=== PATIENT | male | born 1995 | race Caucasian/White ===

== ENCOUNTER 2023-02-08 19:34 | Inpatient (IN) | payer SELFPAY ==
[~2023-02-08 19:34] MED LIST: Iopamidol-370 76% 500 ML MDV (1 ML CHARGE) ONE
[2023-02-08 20:21] LABS: #Lymphocytes 1.6 thou/uL (1.20-3.40); #Monocytes 0.6 thou/uL (0.11-0.59); #Neutrophils 8.3 thou/uL (1.40-6.50); %Basophils 0.1 % (0.0-1.0); %Eosinophils 0.2 % (0.0-10.0); %Monocytes 5.2 % (0.0-10.0); %Neutrophils 79.5 % (42.0-75.0); Hemoglobin 12.7 g/dL (14.0-18.0); Mean Corpuscular HGB CONC 35.4 g/dL (32.0-36.0); Mean Corpuscular Hemoglobin 32.4 pg (27.0-31.0); Mean Corpuscular Volume 91.4 fl (78.0-98.0); Mean Platelet Volume 7.5 fL (7.4-10.4); Platelet Count 282 10x3/uL (130-400); RBC Distribution Width 11.3 % (11.5-14.5); Red Blood Cell (RBC) Count 3.93 mill/uL (4.70-6.10); White Blood Cell (WBC) Count 10.4 10x3/uL (4.8-10.8)
[2023-02-08] MEDS ORDERED: Ketorolac Tromethamine 30 MG/ML VIAL ONE (20:34)
[2023-02-08] MEDS ORDERED: Acetaminophen 500 MG TAB ONE (20:34)
[2023-02-08] MEDS ORDERED: Metoclopramide HCl 10 MG/2 ML VIAL ONE (20:34)
[2023-02-08] MEDS ORDERED: cefTRIAXone (ROCEPHIN) 2 GM VIAL ONE (20:34)
[2023-02-08 20:43] LABS: ALT (SGPT) 30 U/L (8-55); AST (SGOT) 11 U/L (5-34); Albumin 3.7 g/dL (3.5-5.0); Alkaline Phosphatase 58 U/L (40-110); Anion Gap 14 mmol/L (10-20); BUN (Urea Nitrogen) 6 mg/dL (8.9-20.6); Bilirubin, Total 0.3 mg/dL (0.2-1.2); Calc. Creatinine Clearance 0 mL/min (70-130); Calcium 8.9 mg/dL (7.8-10.44); Carbon Dioxide 24 mmol/L (22-29); Chloride 103 mmol/L (98-107); Estimated GFR 130; Globulin 2.6 g/dL (2.4-3.5); Glucose 102 mg/dL (70-105); Lipase 19 U/L (8-78); Magnesium 1.6 mg/dL (1.6-2.6); Potassium 3.4 mmol/L (3.5-5.1); Protein, Total 6.3 g/dL (6.0-8.3); Sodium 138 mmol/L (136-145)
[2023-02-08] MEDS ORDERED: Lidocaine 1% PF 5 ML VIAL ONE (21:09)
[2023-02-08 21:50] LABS: SARS-CoV-2 NAA Rapid Test Not Detected (NotDetected)
[2023-02-08 22:53] LABS: Color Of CSF Supernatant COLORLESS (Colorless); Tube # 2; Unspun CSF Color PINK (Colorless)
[2023-02-08] MEDS ORDERED: Vancomycin 1.5 GRAM/300 ML BAG 1.5 GM in Premix Bag 1 BAG IVPB SCH (23:00)
[2023-02-08 23:05] LABS: CSF, Glucose 58 mg/dl (40-70); CSF, Protein 45 mg/dL (15-40)
[2023-02-08 23:19] LABS: CSF Source CSF; Clarity Hazy (Clear); Tube # 1; Tube # 4
[2023-02-08 23:20] LABS: Clarity Hazy (Clear)
[2023-02-08 23:21] LABS: Cell Count Non Hematic 4 %; Lymphocytes 46 %; Segmented Neutrophils 50 %
[2023-02-08 23:23] LABS: Cell Count Non Hematic 6 %; Lymphocytes 41 %; Segmented Neutrophils 53 %
[2023-02-09] MEDS ORDERED: SODIUM CHLORIDE 0.9% IVPB SCH (00:30)
[2023-02-09] MEDS ORDERED: WATER IVPB SCH (00:30)
[2023-02-09] MEDS ORDERED: ACYCLOVIR SODIUM IVPB SCH ×2 (00:30)
[2023-02-09] MEDS ORDERED: DEXTROSE 5% IVPB SCH (00:30)
[2023-02-09] MEDS ORDERED: Acetaminophen 650 MG Suppository PR PRN (00:54)
[2023-02-09] MEDS ORDERED: Acetaminophen 325 MG TAB PO PRN (00:54)
[2023-02-09 01:53] VITALS: BMI 24.3
[2023-02-09] MEDS: Ondansetron PF 4 MG/2 ML Vial IVP PRN ×2 (02:14→20:40)
[2023-02-09] MEDS: Ketorolac Tromethamine 30 MG/ML VIAL IVP PRN ×4 (02:23→20:40)
[2023-02-09 07:06] LABS: #Lymphocytes 1.6 thou/uL (1.20-3.40); #Monocytes 0.6 thou/uL (0.11-0.59); #Neutrophils 7.9 thou/uL (1.40-6.50); %Eosinophils 0.4 % (0.0-10.0); %Lymphocytes 15.9 % (21.0-51.0); %Monocytes 6.2 % (0.0-10.0); %Neutrophils 77.5 % (42.0-75.0); Mean Corpuscular Hemoglobin 31.3 pg (27.0-31.0); Mean Platelet Volume 7.5 fL (7.4-10.4); Platelet Count 261 10x3/uL (130-400); RBC Distribution Width 11.3 % (11.5-14.5); Red Blood Cell (RBC) Count 3.84 mill/uL (4.70-6.10); White Blood Cell (WBC) Count 10.1 10x3/uL (4.8-10.8)
[2023-02-09 07:10] LABS: Bacteria/HPF None Seen HPF (None Seen); Bilirubin Negative (Negative); Blood, Urine Negative (Negative); Clarity Clear (Clear); Glucose, Urine (Dipstick) Normal (Negative); Ketone, Urine Negative (Negative); Leukocyte Negative Leu/uL (Negative); Nitrite Negative (Negative); Protein, Urine (Dipstick) Negative (Neg-Trace); RBC/HPF None Seen HPF (0-3); Specific Gravity, Urine 1.021 (1.002-1.036); Squamous Epithelial None Seen HPF (0-3); Urobilinogen Normal mg/dL (Less than 2); WBC/HPF None Seen HPF (0-3); pH, Urine 6.5 (5.0-9.0)
[2023-02-09 07:23] LABS: Anion Gap 13 mmol/L (10-20); BUN (Urea Nitrogen) 5 mg/dL (8.9-20.6); Calc. Creatinine Clearance 173 mL/min (70-130); Calcium 8.5 mg/dL (7.8-10.44); Carbon Dioxide 25 mmol/L (22-29); Chloride 104 mmol/L (98-107); Estimated GFR 132; Glucose 85 mg/dL (70-105); Potassium 3.6 mmol/L (3.5-5.1); Sodium 138 mmol/L (136-145)
[2023-02-09] MEDS: Ondansetron ODT 4 MG TAB PO PRN (08:05)
[2023-02-09] MEDS: Vancomycin 1 GM in Premix Bag 1 BAG IVPB SCH ×3 (08:07→23:20)
[2023-02-09] MEDS ORDERED: VANCOMYCIN 1.25 GM/250 ML BAG 1.25 GM in Premix Bag 1 BAG IVPB SCH (09:00)
[2023-02-09] MEDS ORDERED: Morphine 2 MG/ML VIAL SLOW IVP SCH (09:00)
[2023-02-09] MEDS ORDERED: Metoclopramide HCl 10 MG/2 ML VIAL IVP PRN (09:04)
[2023-02-09] MEDS: cefTRIAXone\\ROCEPHIN 2 GM in Sodium Chloride 0.9% 100 ML IVPB SCH ×2 (09:29→20:44)
[2023-02-09 10:53] LABS: HIV (1/2) Antibody/Antigen Non-Reactive (NonReactive); HIV 1/2 INDEX 0.14 S/CO (<1.00)
[2023-02-09] MEDS: diphenhydrAMINE 25 MG in Sodium Chloride 0.9% 50 ML IVPB SCH ×3 (11:06→21:53)
[2023-02-09] MEDS: Prochlorperazine Edisylate 10 MG in Sodium Chloride 0.9% 50 ML IVPB SCH ×3 (11:40→22:30)
[2023-02-09] MEDS: ACYCLOVIR SODIUM IVPB SCH ×2 (12:10→18:34)
[2023-02-09] MEDS: SODIUM CHLORIDE 0.9% IVPB SCH ×2 (12:10→18:34)
[2023-02-09 14:54] LABS: Amphetamine Not Detected (NotDetected); Barbiturates Screen Detected (NotDetected); Benzodiazepine Screen Not Detected (NotDetected); Cocaine Metabolite Screen Not Detected (NotDetected); Methadone Not Detected (NotDetected); Methamphetamine Not Detected (NotDetected); Opiate Screen Detected (NotDetected); Oxycodone Screen Not Detected (NotDetected); Phencyclidine (PCP) Not Detected (NotDetected); THC/Cannabinoid Screen Not Detected (NotDetected); Tricyclic Screen Not Detected (NotDetected)
[2023-02-09 16:16] LABS: Strep pneumo Urine Ag NEGATIVE (NEGATIVE)
[2023-02-09] MEDS: Morphine 2 MG/ML VIAL SLOW IVP PRN (18:45)
[2023-02-10 00:03] LABS: Vancomycin, Trough 7.4 ug/mL
[2023-02-10] MEDS: Vancomycin 1 GM in Premix Bag 1 BAG IVPB SCH (00:15)
[2023-02-10] MEDS: Vancomycin 1.5 GRAM/300 ML BAG 1.5 GM in Premix Bag 1 BAG IVPB SCH ×3 (00:22→15:16)
[2023-02-10] MEDS: ACYCLOVIR SODIUM IVPB SCH ×3 (02:11→18:00)
[2023-02-10] MEDS: SODIUM CHLORIDE 0.9% IVPB SCH ×3 (02:11→18:00)
[2023-02-10] MEDS: Morphine 2 MG/ML VIAL SLOW IVP PRN ×3 (02:11→15:17)
[2023-02-10] MEDS: Prochlorperazine Edisylate 10 MG in Sodium Chloride 0.9% 50 ML IVPB SCH (04:18)
[2023-02-10] MEDS: diphenhydrAMINE 25 MG in Sodium Chloride 0.9% 50 ML IVPB SCH (04:18)
[2023-02-10] MEDS ORDERED: Ketorolac Tromethamine 30 MG/ML VIAL IVP SCH (04:45)
[2023-02-10] MEDS: cefTRIAXone\\ROCEPHIN 2 GM in Sodium Chloride 0.9% 100 ML IVPB SCH ×2 (10:32→20:40)
[2023-02-10] MEDS: Ondansetron PF 4 MG/2 ML Vial IVP PRN ×2 (11:08→20:38)
[2023-02-10] MEDS: Ketorolac Tromethamine 30 MG/ML VIAL IVP PRN ×2 (13:00→20:38)
[2023-02-10] MEDS ORDERED: Pantoprazole 40 MG VIAL IVP SCH (13:45)
[2023-02-10] MEDS ORDERED: D5 1/2 NS w/20 mEq KCL 1,000 ML IV SCH (14:00)
[2023-02-10] MEDS: D5 1/2 NS w/20 mEq KCL 1,000 ML IV SCH (15:05)
[2023-02-10 23:30] LABS: Vancomycin, Trough 9.6 ug/mL
[2023-02-11] MEDS: VANCOMYCIN 2 GRAM/500 ML BAG 2 GM in Premix Bag 1 BAG IVPB SCH ×2 (00:02→08:11)
[2023-02-11] MEDS: Morphine 2 MG/ML VIAL SLOW IVP PRN ×3 (01:08→12:52)
[2023-02-11] MEDS: ACYCLOVIR SODIUM IVPB SCH ×3 (03:06→20:14)
[2023-02-11] MEDS: SODIUM CHLORIDE 0.9% IVPB SCH ×3 (03:06→20:14)
[2023-02-11] MEDS: Ketorolac Tromethamine 30 MG/ML VIAL IVP PRN (03:07)
[2023-02-11 06:17] LABS: #Eosinphils 0.1 thou/uL (0.0-0.7); #Lymphocytes 1.4 thou/uL (1.20-3.40); #Monocytes 0.6 thou/uL (0.11-0.59); #Neutrophils 9.4 thou/uL (1.40-6.50); %Basophils 0.2 % (0.0-1.0); %Eosinophils 0.6 % (0.0-10.0); %Lymphocytes 12.2 % (21.0-51.0); %Monocytes 4.9 % (0.0-10.0); %Neutrophils 82.1 % (42.0-75.0); Mean Corpuscular HGB CONC 34.3 g/dL (32.0-36.0); Mean Corpuscular Hemoglobin 31.2 pg (27.0-31.0); Mean Corpuscular Volume 91.1 fl (78.0-98.0); Mean Platelet Volume 7.5 fL (7.4-10.4); Platelet Count 286 10x3/uL (130-400); RBC Distribution Width 11.4 % (11.5-14.5); Red Blood Cell (RBC) Count 4.17 mill/uL (4.70-6.10); White Blood Cell (WBC) Count 11.5 10x3/uL (4.8-10.8)
[2023-02-11 06:28] LABS: Anion Gap 15 mmol/L (10-20); BUN (Urea Nitrogen) 10 mg/dL (8.9-20.6); Calc. Creatinine Clearance 165 mL/min (70-130); Calcium 8.5 mg/dL (7.8-10.44); Carbon Dioxide 24 mmol/L (22-29); Chloride 103 mmol/L (98-107); Estimated GFR 130; Glucose 92 mg/dL (70-105); Potassium 3.9 mmol/L (3.5-5.1); Sodium 138 mmol/L (136-145)
[2023-02-11] MEDS: cefTRIAXone\\ROCEPHIN 2 GM in Sodium Chloride 0.9% 100 ML IVPB SCH ×2 (08:01→21:43)
[2023-02-11] MEDS: Pantoprazole 40 MG VIAL IVP SCH (08:03)
[2023-02-11] MEDS: D5 1/2 NS w/20 mEq KCL 1,000 ML IV SCH ×3 (08:03→15:49)
[2023-02-11] MEDS: Ondansetron PF 4 MG/2 ML Vial IVP PRN (11:39)
[2023-02-11] MEDS ORDERED: Prochlorperazine Edisylate 10 MG in Sodium Chloride 0.9% 50 ML IVPB SCH (15:30)
[2023-02-11] MEDS: Ketorolac Tromethamine 30 MG/ML VIAL IVP SCH ×2 (15:43→21:43)
[2023-02-12] MEDS: SODIUM CHLORIDE 0.9% IVPB SCH ×2 (01:51→10:52)
[2023-02-12] MEDS: ACYCLOVIR SODIUM IVPB SCH ×2 (01:51→10:52)
[2023-02-12] MEDS: Morphine 2 MG/ML VIAL SLOW IVP PRN ×3 (01:53→13:39)
[2023-02-12] MEDS: Ondansetron PF 4 MG/2 ML Vial IVP PRN ×2 (04:07→19:09)
[2023-02-12] MEDS: Ketorolac Tromethamine 30 MG/ML VIAL IVP SCH ×4 (04:07→21:20)
[2023-02-12] MEDS: D5 1/2 NS w/20 mEq KCL 1,000 ML IV SCH ×3 (04:11→17:29)
[2023-02-12] MEDS: Ondansetron ODT 4 MG TAB PO PRN ×2 (08:35→13:38)
[2023-02-12] MEDS: cefTRIAXone\\ROCEPHIN 2 GM in Sodium Chloride 0.9% 100 ML IVPB SCH ×2 (08:36→21:20)
[2023-02-12] MEDS: Pantoprazole 40 MG VIAL IVP SCH (08:36)
[2023-02-12] MEDS: SUMAtriptan Succinate 6 MG/0.5 ML VIAL SC PRN (19:10)
[2023-02-13] MEDS: SUMAtriptan Succinate 6 MG/0.5 ML VIAL SC PRN ×2 (02:15→13:19)
[2023-02-13] MEDS: Ketorolac Tromethamine 30 MG/ML VIAL IVP SCH ×2 (03:54→10:40)
[2023-02-13 08:29] LABS: #Eosinphils 0.1 thou/uL (0.0-0.7); #Lymphocytes 1.1 thou/uL (1.20-3.40); #Monocytes 0.4 thou/uL (0.11-0.59); #Neutrophils 5.4 thou/uL (1.40-6.50); %Basophils 0.1 % (0.0-1.0); %Eosinophils 1.3 % (0.0-10.0); %Lymphocytes 16.1 % (21.0-51.0); %Monocytes 6.1 % (0.0-10.0); %Neutrophils 76.4 % (42.0-75.0); Hemoglobin 14.1 g/dL (14.0-18.0); Mean Corpuscular Hemoglobin 30.7 pg (27.0-31.0); Mean Platelet Volume 7.5 fL (7.4-10.4); Platelet Count 278 10x3/uL (130-400); RBC Distribution Width 12.2 % (11.5-14.5); Red Blood Cell (RBC) Count 4.61 mill/uL (4.70-6.10)
[2023-02-13] MEDS: cefTRIAXone\\ROCEPHIN 2 GM in Sodium Chloride 0.9% 100 ML IVPB SCH ×2 (08:32→21:19)
[2023-02-13] MEDS: Pantoprazole 40 MG VIAL IVP SCH (08:32)
[2023-02-13 08:48] LABS: Anion Gap 13 mmol/L (10-20); BUN (Urea Nitrogen) 5 mg/dL (8.9-20.6); Calc. Creatinine Clearance 160 mL/min (70-130); Calcium 9.1 mg/dL (7.8-10.44); Carbon Dioxide 27 mmol/L (22-29); Chloride 100 mmol/L (98-107); Estimated GFR 129; Glucose 129 mg/dL (70-105); Potassium 3.8 mmol/L (3.5-5.1); Sodium 136 mmol/L (136-145)
[2023-02-13] MEDS: D5 1/2 NS w/20 mEq KCL 1,000 ML IV SCH (13:21)
[2023-02-13] MEDS ORDERED: Melatonin 3 MG TAB PO PRN (13:40)
[2023-02-13] MEDS: Ketorolac Tromethamine 30 MG/ML VIAL IVP PRN (15:30)
[2023-02-13] MEDS: Acetaminophen 500 MG TAB PO PRN (18:15)
[2023-02-13] MEDS ORDERED: diphenhydrAMINE 50 MG CAP PO SCH (21:00)
[2023-02-14] MEDS: Ketorolac Tromethamine 30 MG/ML VIAL IVP PRN (00:09)
[2023-02-14] MEDS: Acetaminophen 500 MG TAB PO PRN ×2 (03:12→08:43)
[2023-02-14] MEDS: cefTRIAXone\\ROCEPHIN 2 GM in Sodium Chloride 0.9% 100 ML IVPB SCH (08:39)
[2023-02-14] MEDS: Pantoprazole 40 MG VIAL IVP SCH (08:39)
[2023-02-14] MEDS: D5 1/2 NS w/20 mEq KCL 1,000 ML IV SCH (08:48)
[2023-02-14 09:01] VITALS: BP 124/82; TEMP 98.4
== END 2023-02-14 15:36 | disposition home or self-care (01) | DRG 76 ==
LOC: ERS 19:34 → T4-A 02-09 00:03 → OBSVTOIN 02-09 17:18
PROVIDERS: ADMIT Hospitalist; ATTEND Hospitalist
PROC: 009U3ZX Drainage of Spinal Canal, Percutaneous Approach, Diagnostic (ICD-10-PCS; principal; 2023-02-09)
DX: A87.9 Viral meningitis, unspecified (principal); Z20.822 Contact with and (suspected) exposure to COVID-19; I10 Essential (primary) hypertension; G43.909 Migraine, unspecified, not intractable, without status migrainosus; D64.9 Anemia, unspecified; E87.6 Hypokalemia; R33.8 Other retention of urine; Z79.899 Other long term (current) drug therapy
CPT/HCPCS: 36415; 62270; 70450; 70496; 71045; 80048; 80053; 80202; 80306; 81001; 82945; 83605; 83690; 83735; 84157; 85025; 85060; 85652; 86140; 86592; 87040; 87070; 87086; 87205; 87389; 87449; 87498; 87529; 87899; 89051; 96361; 96374; 96375; 96376; C9113; G0378; J0133; J0696; J0780; J1200; J1885; J2272; J2405; J2765; J3030; J3370; J3370-JW; J3480; J3490; J7050; J7070; Q0162; Q9967